=== PATIENT | male | born 1945 | race Caucasian/White ===

== ENCOUNTER 2024-10-08 15:35 | Inpatient (IN) | payer MEDICARE ==
[~2024-10-08] VITALS: Ht 172.7 cm; Wt 83.6 kg
[2024-10-08] VITALS (9 sets, daily range): BP systolic 145–187; BP diastolic 66–101
[~2024-10-08 15:35] MED LIST: ACCUPRIL5 MG; ACETAMIN325 MG PO; ASPIRIN81 MG PO; ATENOLOL25 MG PO; AVODART0.5 MG; AVODART0.5 MG PO; CARDURA1 MG PO; CIPRO XR500 MG PO; CIPRO500 MG PO; CIPROFLOXACN500 MG PO; CYCLOBENZAPR5 MG PO; DILAUDID2 MG PO; FLEXERIL PO; FUROSEMIDE20 MG PO; LORTAB 5/3255 MG PO; LORTAB 7.5 PO; MEDDOSEPAK PO; MICARDIS HCT PO; MICARDIS40 MG PO; MOTRIN200 MG PO; PAXIL30 MG PO; POOR HISTORIAN; POT CHLORIDE10 ME1 PO; PROSCAR5 MG PO; RANITIDINE150 MG PO; ULTRAM50 MG PO
[2024-10-08 15:59] LABS: BASO% 0.6 % (0-3); EOS% 2.3 % (0-8); HEMATOCRIT 45.5 % (39.0-50.0); HEMOGLOBIN 14.9 g/dl (14.0-18.0); IMMATURE GRANULOCYTES 0.1 % (0.0-5.0); LYMPH% 26.5 % (15-41); MEAN CELL VOLUME 106.8 fL CALC (80.0-100.0); MEAN CORPUSCULAR HGB CONC 32.7 g/dL CAL (32.0-36.0); NEUT# 5.68 thou/uL (1.82-7.42); NEUT% 63.5 % (42-76); RED BLOOD COUNT 4.26 mill/uL (4.70-6.10); RED CELL DISTRI WIDTH 13.4 % (11.5-15.5)
[2024-10-08] MEDS ORDERED: ATORVASTATIN CA20 MG PO (16:12)
[2024-10-08] MEDS ORDERED: LEVOTHYROXIN50 MCG PO (16:13)
[2024-10-08] MEDS ORDERED: WELLBUTRIN XL300 MG PO (16:13)
[2024-10-08 16:14] LABS: INTERNATIONAL NORMALIZED RATIO 1.1 RATIO (0.7-1.3)
[2024-10-08 16:15] LABS: CHOLESTEROL HDL RATIO 2.7 (<4.4 (CALC))
[2024-10-08] MEDS ORDERED: TELMISARTAN40 MG (16:15)
[2024-10-08 16:16] LABS: PROTHROMBIN TIME 11.4 SECONDS (9.0-12.5)
[2024-10-08] MEDS ORDERED: DUTASTERIDE0.5 MG (16:16)
[2024-10-08] MEDS ORDERED: XANAX0.5 MG PO (16:48)
--- NOTE | 2024-10-08 16:51 | NUR ---
PT RESTING WITH FAMILY AT BEDSIDE.
[2024-10-08] MEDS ORDERED: CLOPIDOGREL BISULFATE 75 MG/TAB TAB PO ONE (17:05)
[2024-10-08 17:10] LABS: ALBUMIN 3.6 g/dL (3.2-5.0); CREATININE 1.6 mg/dL (0.7-1.3); POTASSIUM 4.4 mmol/l (3.5-5.1); TOTAL PROTEIN 6.7 g/dL (6.3-8.2)
[2024-10-08 17:12] LABS: BILIRUBIN, TOTAL 0.9 mg/dL (0.2-1.3)
--- NOTE | 2024-10-08 17:46 | NUR ---
PT UPDATED ON STATUS, NO NEEDS AT THIS TIME.
[2024-10-08 18:08] LABS: URINE BILIRUBIN - DIPSTICK Negative (NEGATIVE); URINE BLOOD DIPSTICK Negative (NEGATIVE); URINE GLUCOSE - DIPSTICK Negative (NEGATIVE); URINE KETONE Negative (NEGATIVE); URINE LEUK ESTERASE Negative (NEGATIVE); URINE NITRITE - DIPSTICK Negative (Negative); URINE PROTEIN - DIPSTICK Negative (NEG-TRACE); URINE UROBILINOGEN - DIPSTICK 0.2 E.U./dL (0.2)
[2024-10-08] MEDS ORDERED: DEXTROSE 250 ML IV PRN (18:10)
[2024-10-08 18:11] LABS: URINE COLOR Yellow
--- NOTE | 2024-10-08 18:44 | NUR ---
PT RESTING, NO NEEDS AT THIS TIME.
--- NOTE | 2024-10-08 19:47 | NUR ---
REPORT CALLED TO Chase JOHANSEN RN
--- NOTE | 2024-10-08 20:50 | NUR ---
PATIENT ADMITTED TO [facility] VIA STRETCHER. ALERT AND ABLE TO MAKE NEEDS KNOWN. AMBULATED SELF TO BED WITH STEADY GAIT WITH SUPERVISION. ASSESSMENT COMPLETE. NO DISTRESS NOTED. NO COMPLAINTS OF PAIN. NIH-1. MENDS-0. NO COMPLAINTS OF DIZZINESS OR FEELING HEAVY. ORIENTED PATIENT TO ROOM, CALL BLISS AND SURROUNDINGS. FRESH WATER AT BEDSIDE. MEAL PROVIDED. BED IN LOW POSITION. CALL BLISS IN REACH.
[2024-10-08] MEDS ORDERED: ATORVASTATIN CALCIUM 40 MG/TAB PO SCH (21:00)
--- NOTE | 2024-10-08 21:00 | NUR ---
PATIENT TRASNPORTED TO MED SURG ROOM 260
--- NOTE | 2024-10-08 23:30 | NUR ---
PATIENT REMAINS RESTING IN BED. DENIES NEEDING ANYTHING AT THIS TIME. BED REMAINS IN LOW POSITION. CALL BLISS IN REACH.
[2024-10-09] VITALS (7 sets, daily range): BP systolic 139–173; BP diastolic 69–89
--- NOTE | 2024-10-09 03:40 | NUR ---
PATIENT OBSERVED RESTING IN BED ON HIS RIGHT SIDE. NO DISTRESS NOTED. NO COMPLAINTS VOICED. BED REMAINS IN LOW POSITION. CALL BLISS IN REACH.
--- NOTE | 2024-10-09 07:25 | NUR ---
PT IS FOUND RESTING COMFORTABLY IN BED. PT IS A&O X4 AND STABLE. PT IS ABLE TO MAKE HIS NEEDS KNOWN. PLAN OF CARE WAS REVIEWED WITH THE PT AND PT STATES NO FURTHER QUESTIONS AT THIS TIME. ALL NATIONAL PT SAFETY PRECAUTIONS IN PLACE.
[2024-10-09] MEDS ORDERED: PANTOPRAZOLE SODIUM Sesquihydr 40 MG/TAB PO SCH (09:00)
[2024-10-09] MEDS ORDERED: CLOPIDOGREL BISULFATE 75 MG/TAB TAB PO SCH (09:00)
[2024-10-09] MEDS ORDERED: ALPRAZolam 0.5 MG/TAB PO PRN (09:20)
[2024-10-09] MEDS ORDERED: LEVOTHYROXINE SODIUM 50 MCG/TAB PO SCH (10:00)
[2024-10-09] MEDS ORDERED: ASPIRIN 81 MG/TAB PO SCH (10:00)
[2024-10-09] MEDS ORDERED: buPROPion HCL 150 MG TAB SR PO SCH (10:00)
[2024-10-09] MEDS ORDERED: LOSARTAN Potassium 50 MG/TAB PO SCH (10:00)
--- NOTE | 2024-10-09 11:56 | NUR ---
PT'S CONDITION REMAINS THE SAME. PT IS A&O X4; ABLE TO MOVE ALL EXTREMETIES. MRI IS COMPLETE. ALL NATIONAL PT SAFETY PRECAUTIONS IN PLACE.
--- NOTE | 2024-10-09 16:00 | NUR ---
PT'S CONDITION REMAINS THE SAME. PT IS A&OX4; PT IS STABLE. ALL NATIONAL PT SAFETY PRECAUTIONS IN PLACE.
--- NOTE | 2024-10-09 19:00 | NUR ---
PATIENT OBSERVED RESTING IN BED. ALERT AND ABLE TO MAKE NEEDS KNOWN. ASSESSMENT COMPLETE. NO DISTRESS NOTED. NO COMPLAINTS OF PAIN. NO DEFICITS OBSERVED. NIH-1. MENDS-0. REMINDED PATIENT TO USE CALL BLISS WHEN NEEDING ASSISTANCE. BED REMAINS IN LOW POSITION. CALL BLISS IN REACH. BED ALARM ACTIVE FOR SAFETY.
--- NOTE | 2024-10-09 23:45 | NUR ---
PATIENT REMAINS RESTING IN BED. DENIES NEEDING ANYTHING AT THIS TIME. BED REMAINS IN LOW POSITION. CALL BLISS AND BELONGINGS IN REACH. BED ALARM ACTIVE FOR SAFETY.
[2024-10-10] VITALS (8 sets, daily range): BP systolic 140–149; BP diastolic 65–80
--- NOTE | 2024-10-10 04:10 | NUR ---
PATIENT REMAINS RESTING IN BED. NO DISTRESS NOTED. NO SIGNS OF PAIN. DENIES NEEDING ANYTHING AT THIS TIME. BED REMAINS IN LOW POSITION. CALL BLISS IN REACH.
[2024-10-10 05:45] LABS: HEMATOCRIT 45.3 % (39.0-50.0); HEMOGLOBIN 14.9 g/dl (14.0-18.0); MEAN CELL VOLUME 107.1 fL CALC (80.0-100.0); MEAN CORPUSCULAR HGB 35.2 pG CALC (26.0-32.0); MEAN CORPUSCULAR HGB CONC 32.9 g/dL CAL (32.0-36.0); RED BLOOD COUNT 4.23 mill/uL (4.70-6.10); RED CELL DISTRI WIDTH 13.5 % (11.5-15.5)
[2024-10-10 05:47] LABS: ALBUMIN 3.5 g/dL (3.2-5.0); BILIRUBIN, TOTAL 1.1 mg/dL (0.2-1.3); CREATININE 1.5 mg/dL (0.7-1.3); POTASSIUM 3.6 mmol/l (3.5-5.1); TOTAL PROTEIN 6.4 g/dL (6.3-8.2)
--- NOTE | 2024-10-10 07:46 | NUR ---
SHIFT CHANGE REPORT, PT AWAKE ALERT AND ORIENTED RESTING IN BED, NO C/O DISCOMFORT, TELE MONITOR IN PLACE CALL BLISS IN REACH AND BED LOCKED IN LOWEST POSITION.
--- NOTE | 2024-10-10 09:53 | NUR ---
NEUROLOGIST JUST EVALUATED AND DISCUSSED PLANS WITH PT, WILL WRITE RECOMMENDATIONS.
[2024-10-10] MEDS ORDERED: PLAVIX75 MG PO (10:32)
--- NOTE | 2024-10-10 17:10 | NUR ---
Discharge instructions given. Patient verbalizes understanding of same. Discharged in good condition via Wheelchair to Home with family. All belongings sent with pt.
== END 2024-10-10 17:00 | disposition home or self-care (01) | DRG 66 ==
LOC: ED 15:35 → ED-I 17:20 → ED 17:36 → MS2 17:37
PROVIDERS: Family Medicine; Nurse Practitioner Family; ADMIT Internal Medicine; ATTEND Internal Medicine
DX: I63.512 Cerebral infarction due to unspecified occlusion or stenosis of left middle cerebral artery (principal); R26.0 Ataxic gait; R29.701 NIHSS score 1; I12.9 Hypertensive chronic kidney disease with stage 1 through stage 4 chronic kidney disease, or unspecified chronic kidney disease; E11.22 Type 2 diabetes mellitus with diabetic chronic kidney disease; N18.9 Chronic kidney disease, unspecified; N40.0 Benign prostatic hyperplasia without lower urinary tract symptoms; E03.9 Hypothyroidism, unspecified; F32.A Depression, unspecified; F41.9 Anxiety disorder, unspecified; Z87.891 Personal history of nicotine dependence
CPT/HCPCS: Q9967